=== PATIENT | female | born 1995 | race Two or more races ===

== ENCOUNTER 2022-01-12 19:18 | Emergency (ER) | payer OTHER ==
[~2022-01-12] VITALS: Ht 182.9 cm; Wt 95.3 kg
== END 2022-01-13 01:34 | disposition home or self-care (01) ==
LOC: ER 19:18
DX: O26.892 Other specified pregnancy related conditions, second trimester (principal); Z3A.15 15 weeks gestation of pregnancy; L05.01 Pilonidal cyst with abscess

== ENCOUNTER 2022-06-26 10:54 | Outpatient (CLI) | payer OTHER | END 2022-06-26 13:34 | disposition home or self-care (01) | LOC: NST 10:54 | PROVIDERS: ATTEND Obstetrics & Gynecology Maternal & Fetal Medicine | DX: Z34.83 Encounter for supervision of other normal pregnancy, third trimester (principal) ==

== ENCOUNTER 2022-07-02 12:12 | Inpatient (IN) | payer OTHER ==
[~2022-07-02] VITALS: Ht 49.5 cm; Wt 111.1 kg
[2022-07-02] MEDS ORDERED: PRENATAL TABLE1 EAC1 PO (14:45)
[2022-07-02] MEDS ORDERED: IRON 100 PLUS1 EACH PO (14:46)
== END 2022-07-04 12:29 | disposition home or self-care (01) | DRG 807 ==
LOC: LDR 12:12 → OB/GYN 21:55
PROVIDERS: ADMIT Obstetrics & Gynecology Maternal & Fetal Medicine; ATTEND Obstetrics & Gynecology Maternal & Fetal Medicine
PROC: 10E0XZZ Delivery of Products of Conception, External Approach (ICD-10-PCS; principal; 2022-07-02)
PROC: 0KQM0ZZ Repair Perineum Muscle, Open Approach (ICD-10-PCS; 2022-07-02)
PROC: 4A1HXCZ Monitoring of Products of Conception, Cardiac Rate, External Approach (ICD-10-PCS; 2022-07-02)
DX: O70.1 Second degree perineal laceration during delivery (principal); Z37.0 Single live birth; Z3A.40 40 weeks gestation of pregnancy; Z20.822 Contact with and (suspected) exposure to COVID-19